=== PATIENT | male | born 1975 | race American Indian/Alaskan Native ===

== ENCOUNTER 2021-05-15 14:10 | Emergency (ER) | payer OTHER ==
[~2021-05-15] VITALS: Ht 180.3 cm; Wt 99.3 kg
[2021-05-15] MEDS ORDERED: ELIQUIS5 MG PO (18:40)
[2021-05-15] MEDS ORDERED: HYDROCODON-ACE1 EA10 PO (18:40)
--- NOTE | 2021-05-15 22:32 | EKG ---
[facility] [address] [facility] [place] [address] Signed Sinus bradycardia Right superior axis deviation Nonspecific intraventricular conduction delay Abnormal QRS-T angle, consider primary T wave abnormality Abnormal ECG No previous ECGs available Confirmed by WINNIE JOYCE DO ([id number]) on 05/15/2021 10:32:20 PM Electronically Signed By: WINNIE JOYCE DO 05/15/212231 PATIENT NAME: KELSI FITZGERALD Electrocardiogram DATE OF : 77 PHYSICIAN: WINNIE JOYCE DO REPORT #: [id number] REPORT IS CONFIDENTIAL AND NOT TO BE RELEASED WITHOUT AUTHORIZATION
== END 2021-05-15 18:58 | disposition home or self-care (01) ==
LOC: ED 14:10
DX: I82.402 Acute embolism and thrombosis of unspecified deep veins of left lower extremity (principal)
CPT/HCPCS: 80053; 84484; 85025; 85610; 85730; 93005; 93010; 99283-25

== ENCOUNTER 2023-02-22 15:53 | Emergency (ER) | payer OTHER ==
[~2023-02-22] VITALS: Ht 180.3 cm; Wt 99.3 kg
[~2023-02-22 15:53] MED LIST: ACETAMINOPHEN325 M1 PO; AMOXICILLIN500 MG PO; ELIQUIS5 MG PO; HYDROCODON-ACE1 EA10 PO
--- OUTSIDE RECORDS SUMMARY | 2023-02-22 15:56 | XMS ---
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 E.DJf VISIT COUNT (12 MO.) 3 [facility]AL[facility] TOTAL 3 NOTE: Visits indicate total known visits. ED/UCC VISIT TRACKING (12 MO.) 02/22/2023 15:54 [facility] [place] TYPE: Emergency COMPLAINT: - RT KNEE PAIN 03/09/2022 14:12 [facility] [place] TYPE: Emergency COMPLAINT: - HEADACHE DIAGNOSES: - Contact with and (suspected) exposure to COVID- - Headache, unspecified - Other [place] [facility] drug therapy - Other specified disorders of teeth and supporting structures 03/05/2022 15:27 [facility] [place] TYPE: Emergency COMPLAINT: - LT LEG PAIN DIAGNOSES: - Acute embolism and thrombosis of left femoral vein - Acute embolism and thrombosis of left peroneal vein - Acute embolism and thrombosis of left popliteal vein - Acute embolism and thrombosis of left tibial vein - Pain in left leg INPATIENT VISIT TRACKING (12 MO.) No inpatient visits to display in this time frame [email or web address]
[2023-02-22] MEDS ORDERED: ELIQUIS5 MG PO (16:07)
[2023-02-22 18:20] VITALS: BP 128/77
== END 2023-02-22 18:21 | disposition home or self-care (01) ==
LOC: ED 15:53
DX: S83.91XA Sprain of unspecified site of right knee, initial encounter (principal); X50.0XXA Overexertion from strenuous movement or load, initial encounter; Z79.01 Long term (current) use of anticoagulants
CPT/HCPCS: 73560; 99283-25